=== PATIENT | female | born 1995 | race Caucasian/White ===

== ENCOUNTER → 2017-09-23 09:13 | Outpatient (CLI) | payer BC, SELFPAY ==
--- NOTE | 2017-09-23 09:16 | US_ITS ---
US abdomen limited History:] Quadrant pain for one week, symptoms of reflux and bloating Ordering Physician:Keshav Mcmahon MD Patient Age: 22 years Comparison:None Findings:The pancreas is somewhat poorly seen due to intervening bowel gas but no significant abnormality is seen. The liver is normal size and liver parenchyma appears normal. The gallbladder is normal in size and shows no definite gallstones or sludge. The common bile duct is normal caliber. Right kidney measures 10.6 x 4.5 x 5.7 cm and appears sonographically normal with no hydronephrosis or other abnormality. Impression:Negative gallbladder/right upper quadrant ultrasound, pancreas not well evaluated on this scan
== END ==
PROVIDERS: PCP Internal Medicine Adolescent Medicine; Visit Provider Internal Medicine Adolescent Medicine
DX: R10.11 Right upper quadrant pain (principal)
CPT/HCPCS: 76705

== ENCOUNTER → 2017-10-10 10:24 | Outpatient (CLI) | payer BC, SELFPAY ==
--- NOTE | 2017-10-10 10:34 | NM_ITS ---
NM hepatobiliary wo pharm HISTORY: Right upper quadrant pain, abdominal pain ITS.REASON: ABD PAIN ORDERING PHYSICIAN: Keshav Mcmahon MD PATIENT AGE: 22 years COMPARISON: None DOSE: 8.01 mCi technetium Choletec Fatty meal with Ensure. No pain reported with the fatty meal FINDINGS: Homogeneous activity is present within the hepatic parenchyma. Activity is present in the gallbladder by 15 minutes. Activity is present in the small bowel by 15 minutes. The gallbladder ejection fraction is calculated to be 42% The patient did not report pain or other symptoms during the fatty meal. IMPRESSION: Unremarkable hepatobiliary scan and gallbladder ejection fraction. No evidence of common or cystic duct obstruction with normal gallbladder ejection fraction
== END ==
PROVIDERS: PCP Internal Medicine Adolescent Medicine; Visit Provider Internal Medicine Adolescent Medicine
DX: R10.11 Right upper quadrant pain (principal)
CPT/HCPCS: 78226; A9537

== ENCOUNTER → 2021-11-21 09:57 | Outpatient (CLI) | payer BC, SELFPAY ==
--- NOTE | 2021-11-21 10:01 | CT_ITS ---
FINAL REPORT TECHNIQUE: After the administration of intravenous contrast, axial images were obtained through the abdomen and pelvis by computed tomography. The study was performed with techniques to keep radiation dose as low as reasonably achievable, (ALARA). Individual dose reduction techniques using automated exposure control or adjustment of mA and/or kV according to the patient's size were employed. CLINICAL HISTORY: LOWER ABD /PELVIC PAIN X 1 MONTH FINDINGS: Abdomen: The lung bases are clear. The liver parenchyma is homogeneous. The liver is enlarged up to 21.5 cm in craniocaudal dimensions. Postoperative changes are seen from prior gastric sleeve. The gallbladder is present. The spleen, pancreas, adrenals and kidneys appear unremarkable. The aorta is normal in caliber. There is no free fluid or adenopathy. Pelvis: The appendix is normal. The urinary bladder is unremarkable. There is a lobular peripherally enhancing cystic structure in the left adnexa measuring 2.8 x 1.7 cm that may represent a recently ruptured cyst. There is moderate free fluid in the pelvis demonstrating a mean attenuation value of 35 Hounsfield units that may represent hemorrhagic fluid.. IMPRESSION: Prior gastric sleeve. Ruptured left ovarian cyst. Probable hemorrhagic fluid in the pelvis. Reviewed, Interpreted and Dictated by Kang Lopez MD Transcribed by Colin Light Authenticated and [facility]
== END ==
PROVIDERS: PCP Internal Medicine Adolescent Medicine; Visit Provider Nurse Practitioner Family
DX: R10.30 Lower abdominal pain, unspecified (principal)
CPT/HCPCS: 74177; Q9967

== ENCOUNTER 2023-03-07 07:47 | Outpatient (CLI) | payer BC, SELFPAY ==
--- NOTE | 2023-03-07 07:53 | US_ITS ---
FINAL REPORT TECHNIQUE: Ultrasound images of the kidneys and bladder were obtained. CLINICAL HISTORY: RECURRENT UTI FINDINGS: The right kidney measures 9.8 cm in length. It is normal in echogenicity. There is no hydronephrosis. The left kidney measures 9.3 cm in length. It is normal in echogenicity. There is no hydronephrosis. The spleen is unremarkable. IMPRESSION: Unremarkable renal ultrasound. Reviewed, Interpreted and Dictated by Felix Rodriguez III, MD Transcribed by Qing Ovalle Authenticated and [facility]
== END 2023-03-07 23:59 ==
LOC: RAD 07:47
PROVIDERS: PCP Internal Medicine Adolescent Medicine; Visit Provider Nurse Practitioner Family
DX: N39.0 Urinary tract infection, site not specified (principal)
CPT/HCPCS: 76770

== ENCOUNTER 2024-02-04 14:00 | Outpatient (RCR) | payer BC, SELFPAY | END 2024-02-17 14:34 | disposition home or self-care (01) | LOC: PT 14:00 | PROVIDERS: PCP Internal Medicine Adolescent Medicine; Visit Provider Family Medicine Sports Medicine | DX: M76.61 Achilles tendinitis, right leg (principal); M76.62 Achilles tendinitis, left leg | CPT/HCPCS: 97035; 97110; 97112; 97163; 97530 ==